=== PATIENT | female | born 1985 | race Caucasian/White ===

== ENCOUNTER 2017-02-28 13:24 | Emergency (ER) | payer OTHER ==
[~2017-02-28] VITALS: Ht 167.6 cm; Wt 100.0 kg
[~2017-02-28 13:24] MED LIST: ALBU8.5H3 INH; CETI10CA PO; GUAI473L22 PO; IBUP400T22 PO; POLY10DR19 BOTH EYES
[2017-02-28 13:28] VITALS: Ht 167.6 cm; Wt 100.0 kg
[2017-02-28] MEDS ORDERED: KETOROLAC 30 MG INJ IV STA (16:06)
[2017-02-28] MEDS ORDERED: ONDANSETRON 4 MG INJ IV STA ×2 (16:06→17:35)
[2017-02-28 16:29] LABS: ADD UMIC YES; UR ASCORBIC ACID NEGATIVE (NEGATIVE); UR BACTERIA FEW /HPF (NONE SEEN); UR BILIRUBIN (Dip) NEGATIVE (NEGATIVE); UR BLOOD (Dip) 3+ mg/dL (NEGATIVE); UR CLARITY CLEAR (CLEAR); UR COLOR YELLOW (YELLOW); UR GLUCOSE (Dip) NEGATIVE (NEGATIVE); UR KETONES (Dip) NEGATIVE (NEGATIVE); UR LEUKOCYTE ESTERASE (Dip) NEGATIVE Leu/ul (NEGATIVE); UR MUCUS FEW /HPF (NONE SEEN); UR NITRITE (Dip) NEGATIVE (NEGATIVE); UR RBC 1 /HPF (0-5); UR SPECIFIC GRAVITY (Dip) 1.012 (1.003-1.030); UR SQUAMOUS EPITHELIAL CELL FEW /HPF (FEW); UR TOTAL PROTEIN (Dip) NEGATIVE (NEGATIVE); UR UROBILINOGEN (Dip) NEGATIVE (NEGATIVE)
--- NOTE | 2017-02-28 16:42 | ERD ---
ER Documentation Chief Complaint Chief Complaint VOMITING, LEFT SIDE PAIN, ONSET 1 DAY HPI This is a 31 year old female who presents emergency department today complaining of left-sided back pain left-sided abdominal pain and vomiting that started last night. States she took ibuprofen last night and Gas-X. Denies any fevers or chills, dysuria or hematuria. States she just finished her menstrual cycle. ROS All systems reviewed and are negative except as per history of present illness. Medications Home Meds Active Scripts Ondansetron Hcl* (Zofran*) 4 Mg Tablet, 4 MG PO Q6H for NAUSEA AND/OR VOMITING, #30 TAB Prov:JOHNNY FRIED PA-C 02/28/17 Naproxen* (Naprosyn*) 500 Mg Tablet, 500 MG PO BID Y for PAIN AND/OR INFLAMMATION, #30 TAB Prov:JOHNNY FRIED PA-C 02/28/17 Hydrocodone/Acetaminophen ([place] 5-325 Tablet) 1 Each Tablet, 1 TAB PO Q6H Y for PAIN, #20 TAB Prov:JOHNNY FRIED PA-C 02/28/17 Albuterol Sulfate* (Proair HFA*) 8.5 Gm Hfa.aer.ad, 2 PUFF INH Q4H Y for WHEEZING AND SOB, #1 INHALER Prov:MOHINI MARTINEZ NP 12/28/15 Ibuprofen* (Motrin*) 400 Mg Tab, 400 MG PO Q6H Y for PAIN AND OR ELEVATED TEMP, #30 TAB Prov:MOHINI MARTINEZ NP 12/28/15 Cetirizine Hcl* (Zyrtec*) 10 Mg Capsule, 10 MG PO DAILY, #30 TAB.CHEW Prov:MOHINI MARTINEZ NP 12/28/15 Guaifenesin-Codeine Phosphate* (Guaifenesin* AC Cough Syrup) 473 Ml Liquid, 5 ML PO Q4H Y for COUGH, #60 ML Prov:MOHINI MARTINEZ NP 12/28/15 Polymyxin B Sulfate-TMP* (Polymyxin B-TMP Eye Drops*) 10 Ml Drops, 1 DROP BOTH EYES QID for 7 Days, EA Prov:SHIRLEY HERRERA PA-C 07/21/15 Allergies Allergies: Coded Allergies: No Known Drug Allergies (Verified Allergy, Mild, 02/16/14) PMhx/Soc History of Surgery: Yes () Anesthesia Reaction: No Hx Neurological Disorder: No Hx Respiratory Disorders: No Hx Cardiac Disorders: No Hx Psychiatric Problems: No Hx Miscellaneous Medical Probl: No Hx Alcohol Use: No Hx Substance Use: No Hx Tobacco Use: No Smoking Status: Never smoker Physical Exam Vitals Vital Signs Date Time Temp Pulse Resp B/P Pulse Ox O2 Delivery O2 Flow Rate FiO2 02/28/17 13:28 98.5 72 18 123/76 99 Physical Exam Const: obese, sitting in wheelchair, NAD Head: Atraumatic Eyes: Normal Conjunctiva ENT: Normal External Ears, Nose and Mouth. Neck: Full range of motion..~ No meningismus. Resp: Clear to auscultation bilaterally Cardio: Regular rate and rhythm, no murmurs Abd: Soft, his left-sided abdominal pain. non distended. Normal bowel sounds right sided abdominal pain. No tenderness to McBurney's. Skin: No petechiae or rashes Back: No midline tenderness, sided paraspinal tenderness. No CVA tenderness. Ext: No cyanosis, or edema Neur: Awake and alert Psych: Normal Mood and Affect Result Diagram: 02/28/17 1620 02/28/17 1620 Results 24 hrs Laboratory Tests Test 02/28/17 16:17 02/28/17 16:20 Urine Color YELLOW Urine Clarity CLEAR Urine pH 6.0 Urine Specific Ranger 1.012 Urine Ketones NEGATIVEmg/dL Urine Nitrite NEGATIVEmg/dL Urine Bilirubin NEGATIVEmg/dL Urine Urobilinogen NEGATIVEmg/dL Urine Leukocyte Esterase NEGATIVELeu/ul Urine Microscopic RBC 1/HPF Urine Microscopic WBC 1/HPF Urine Squamous Epithelial Cells FEW/HPF Urine Bacteria FEW/HPF Urine Mucus FEW/HPF Urine Hemoglobin 3+mg/dL Urine Glucose NEGATIVEmg/dL Urine Total Protein NEGATIVEmg/dl White Blood Count 13.210^3/ul Red Blood Count 4.8210^6/ul Hemoglobin 11.2g/dl Hematocrit 36.2% Mean Corpuscular Volume 75.1fl Mean Corpuscular Hemoglobin 23.2pg Mean Corpuscular Hemoglobin Concent 30.9g/dl Red Cell Distribution Width 15.9% Platelet Count 01353^3/UL Mean Platelet Volume 10.3fl Neutrophils % 73.7% Lymphocytes % 20.5% Monocytes % 4.0% Eosinophils % 1.1% Basophils % 0.4% Nucleated Red Blood Cells % 0.0/100WBC Neutrophils # 9.710^3/ul Lymphocytes # 2.710^3/ul Monocytes # 0.510^3/ul Eosinophils # 0.110^3/ul Basophils # 0.110^3/ul Nucleated Red Blood Cells # 0.010^3/ul Sodium Level 143mmol/L Potassium Level 3.7mmol/L Chloride Level 103mmol/L Carbon Dioxide Level 29mmol/L Anion Gap 15 Blood Urea Nitrogen 11mg/dl Creatinine 0.83mg/dl Glucose Level 112mg/dl Calcium Level 9.2mg/dl Total Bilirubin 0.3mg/dl Direct Bilirubin 0.00mg/dl Indirect Bilirubin 0.3mg/dl Aspartate Amino Transf (AST/SGOT) 16IU/L Alanine Aminotransferase (ALT/SGPT) 29IU/L Alkaline Phosphatase 89IU/L Total Protein 7.9g/dl Albumin 4.3g/dl Globulin 3.60g/dl Albumin/Globulin Ratio 1.19 Lipase 34U/L Current Medications Medications (Trade) Dose Ordered Sig/Willie Route PRN Reason Start Time Stop Time Status Last Admin Dose Admin Ondansetron HCl (Zofran Inj) 4 mg ONCE STAT IV 02/28/17 16:06 02/28/17 16:07 DC 02/28/17 16:17 Ketorolac Tromethamine (Toradol) 30 mg ONCE STAT IV 02/28/17 16:06 02/28/17 16:07 DC 02/28/17 16:17 Morphine Sulfate (morphine) 4 mg ONCE STAT IV 02/28/17 17:35 02/28/17 17:36 DC 02/28/17 17:40 Ondansetron HCl (Zofran Inj) 4 mg ONCE STAT IV 02/28/17 17:35 02/28/17 17:36 DC 02/28/17 17:40 DIAGNOSTIC IMAGING REPORT Patient: MELA RUSSELL : 1985 Age: 31 Sex: F MR #: [id number] DOS: 02/28/17 1606 Ordering MD: JOHNNY FRIED PA-C Location: [facility] Room/Bed: PROCEDURE: CT abdomen and pelvis without contrast. CLINICAL INDICATION: Nausea, vomiting and right lower quadrant pain for 2 days TECHNIQUE: CT scan of the abdomen and pelvis without contrast was performed. Sagittal and coronal reformatted images were obtained from the axial source images. One or more of the following dose reduction techniques were used: Automated exposure control, adjustment of the mA and/or kV according to patient size, use of iterative reconstruction technique. CTDI = 28.29 mGy; DLP = 1926.89 mGy-cm COMPARISON: None available. FINDINGS: Visualized lower thorax: The lung bases are clear. There is no evidence for pleural effusion. Liver, gallbladder, pancreas and spleen: The liver is normal and size, contour and attenuation. There is no evidence for a liver mass or ductal dilatation. The gallbladder is unremarkable. No common bile duct abnormality is demonstrated. The pancreas is unremarkable. The spleen is normal in size. Adrenal glands and genitourinary system: The adrenal glands are normal bilaterally. The kidneys are normal and size, contour and attenuation with no evidence for masses, calculi or hydronephrosis. The ureters are unremarkable. No urinary bladder abnormality is demonstrated. The uterus is unremarkable. Within the center of the pelvis, slightly to the right of midline is an ovoid, circumscribed mass estimated at 6.4 x 11 x 8 cm in AP, transverse and cranial caudal dimensions respectively, the mass containing both a cystic component to the left of midline, a fat component to the right of midline and calcifications along the inferior aspect, findings consistent with a teratoma. There is no evidence of adjacent edema or inflammation of the surrounding fat. The right ovary is visualized and therefore this finding is probably arising from the left ovary. A trace amount of free fluid is present within the dependent cul-de- sac Gastrointestinal system: The stomach is normal in caliber with no abnormality of significance. The small bowel is normal in caliber with no ileus, obstruction or wall thickening. The appendix and surrounding fat are within the limits of normal. The colon shows no evidence for wall thickening or acute abnormality. There is no evidence for colitis or diverticulitis. Peritoneum, retroperitoneum, lymph nodes and vessels: The abdominal aorta is normal in caliber. There is no evidence for atherosclerotic calcification. The inferior vena cava is unremarkable. There is no evidence for adenopathy or mass. There is no ascites. Osseous structures and musculoskeletal findings: There is no fracture, lytic or blastic lesion. No muscular abnormality or soft tissue pathology is present. RPTAT:HJJR IMPRESSION: 1. 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 2. Trace amount of free fluid in the posterior cul-de-sac possibly physiologic. 3. No other abnormalities in the abdomen and pelvis identified. Physician Lizzy Date Time Electronically viewed and signed by Physician Lizzy on 02/28/2017 16:46 JR/ CC: JOHNNY FRIED PA-C DIAGNOSTIC IMAGING REPORT Patient: MELA RUSSELL : 1985 Age: 31 Sex: F MR #: [id number] DOS: 02/28/17 0000 Ordering MD: JOHNNY FRIED PA-C Location: [facility] Room/Bed: PROCEDURE: US Pelvis. CLINICAL INDICATION: Further evaluation for possible teratoma. Last menstrual period 02/23/2017. Left abdominal pain TECHNIQUE: Multiple sonographic images of the pelvis were obtained utilizing a transabdominal and endovaginal technique. The images were reviewed on a PACS workstation. COMPARISON: CT abdomen and pelvis without contrast of 02/28/2017 FINDINGS: The uterus measures 11 x 3.1 x 5 cm and is unremarkable. The thickness of the endometrium equals 4.4 mm. No normal right ovary is seen. 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 On ultrasound there is a corresponding right adnexal mass measures 7.7 x 4.9 x 5.9 cm containing increased echogenicity posterior acoustic shadowing with an additional 5.8 x 6.3 x 6.1 cm cystic mass in the left adnexal region. No normal right ovary is seen. Color flow and spectral analysis demonstrates arterial and venous flow in the mass. The left ovary measures 3.4 x 2.9 x 2.6 cm and is unremarkable. Color flow and spectral analysis demonstrates normal arterial flow in the left ovary. No free intrapelvic fluid is seen. 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 On ultrasound there is a corresponding right adnexal mass measures 7.7 x 4.9 x 5.9 cm containing increased echogenicity and posterior acoustic shadowing with an additional 5.8 x 6.3 x 6.1 cm cystic mass in the left adnexal region which on CT is a contiguous with the fat and calcification containing portion. No normal right ovary is seen. Please see above. RPTAT: HJES .Yury Iraheta MD, MD Date Time Electronically viewed and signed by .Yury Iraheta MD, MD on 02/28/2017 19:26 .S/ CC: JOHNNY FRIED PA-C Procedures/[facility] This is a 31-year old female who presents the emergency department today complaining of left-sided flank pain and abdominal pain for the past day. Patient indicated that she had vomited multiple times. Patient was sitting in wheelchair in no acute distress however on physical exam she had diffuse left- sided abdominal pain and therefore did obtain laboratory workup as well as imaging. Laboratory workup elevated white blood cell count of 13.2. Her hemoglobin is very mildly decreased at 11.2. Platelets are mildly elevated. Electrolytes are within normal limits. Liver enzymes are within normal limits. Lipase is within normal limits. UA is negative for infection Urine is negative CT abdomen pelvis noncontrast shows a complex cystic and solid mass within the center of the pelvis containing fat and a calcification is compatible with a teratoma until proven otherwise. The size of the mass is estimated at 6.4118 cm there is a trace amount of free fluid in the posterior cul-de-sac possibly physiologic. There are no other abnormalities in the abdomen or pelvis. patient was given Zofran and Toradol here in the emergency department complaining of pain and was therefore given morphine. I discussed the patient with Dr. 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 On ultrasound there is a corresponding right adnexal mass that measures 7.7 x 4.9 x 5.9 cm increased echogenicity and posterior acoustic shadowing with an additional 5.8 x 6.3 x 6.1 cm cystic mass in the left adnexal region which on CT is contiguous with the fat and calcific location containing portion. There is no normal right ovary seen. Right ovary shows arterial and venous flow in the mass. Left ovary shows normal arterial flow. I did place a call to the laborist jewelry consultant, Dr. Delcid, who has agreed to see and evaluate the patient and she feels that the patient is stable for discharge and outpatient management as recommended follow-up with Dr. Horta or gynecological oncologist. At this time there is no evidence on ultrasound of torsion. At this time is consistent with abdominal pain and teratoma. Patient will be given a prescription for [place], Naprosyn and Zofran for home. Patient was given strict return precautions. Departure Diagnosis: Primary Impression: Abdominal pain Abdominal location: generalized Qualified Code: R10.84 - Generalized abdominal pain Additional Impression: Teratoma Condition: JOHNNY Bell PA-C Feb 28, 2017 16:42
--- NOTE | 2017-02-28 16:47 | RADRPT ---
PROCEDURE: CT abdomen and pelvis without contrast. CLINICAL INDICATION: Nausea, vomiting and right lower quadrant pain for 2 days TECHNIQUE: CT scan of the abdomen and pelvis without contrast was performed. Sagittal and coronal reformatted images were obtained from the axial source images. One or more of the following dose re duction techniques were used: Automated exposure control, adjustment of the mA and/or kV according t o patient size, use of iterative reconstruction technique. CTDI = 28.29 mGy; DLP = 1926.89 mGy-cm COMPARISON: None available. FINDINGS: Visualized lower thorax: The lung bases are clear. There is no evidence for pleural effusion. Liver, gallbladder, pancreas and spleen: The liver is normal and size, contour and attenuation. Th ere is no evidence for a liver mass or ductal dilatation. The gallbladder is unremarkable. No comm on bile duct abnormality is demonstrated. The pancreas is unremarkable. The spleen is normal in si ze. Adrenal glands and genitourinary system: The adrenal glands are normal bilaterally. The kidneys are normal and size, contour and attenuation with no evidence for masses, calculi or hydronephrosis. T he ureters are unremarkable. No urinary bladder abnormality is demonstrated. The uterus is unremar kable. Within the center of the pelvis, slightly to the right of midline is an ovoid, circumscribed mass estimated at 6.4 x 11 x 8 cm in AP, transverse and cranial caudal dimensions respectively, the mass containing both a cystic component to the left of midline, a fat component to the right of midl ine and calcifications along the inferior aspect, findings consistent with a teratoma. There is no e vidence of adjacent edema or inflammation of the surrounding fat. The right ovary is visualized and therefore this finding is probably arising from the left ovary. A trace amount of free fluid is pres ent within the dependent cul-de-sac Gastrointestinal system: The stomach is normal in caliber with no abnormality of significance. The small bowel is normal in caliber with no ileus, obstruction or wall thickening. The appendix and s urrounding fat are within the limits of normal. The colon shows no evidence for wall thickening or acute abnormality. There is no evidence for colitis or diverticulitis. Peritoneum, retroperitoneum, lymph nodes and vessels: The abdominal aorta is normal in caliber. The re is no evidence for atherosclerotic calcification. The inferior vena cava is unremarkable. There is no evidence for adenopathy or mass. There is no ascites. Osseous structures and musculoskeletal findings: There is no fracture, lytic or blastic lesion. No muscular abnormality or soft tissue pathology is present. RPTAT:HJJR IMPRESSION: 1. 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 2. Trace amount of free fluid in the posterior cul-de-sac possibly physiologic. 3. No other abnormalities in the abdomen and pelvis identified. Physician Lizzy Date Time Electronically viewed and signed by Physician Lizzy on 02/28/2017 16:46 JR/
[2017-02-28 17:16] LABS: BASOPHIL # 0.1 10^3/ul (0.0-0.1); BASOPHILS % 0.4 % (0.0-2.0); EOSINOPHILS # 0.1 10^3/ul (0.0-0.5); EOSINOPHILS % 1.1 % (0.0-7.0); HEMATOCRIT 36.2 % (37.0-47.0); HEMOGLOBIN 11.2 g/dl (12.0-16.0); LYMPHOCYTES # 2.7 10^3/ul (0.8-2.9); LYMPHOCYTES % 20.5 % (15.0-51.0); MEAN CORPUSCULAR HEMOGLOBIN 23.2 pg (29.0-33.0); MEAN CORPUSCULAR HGB CONC 30.9 g/dl (32.0-37.0); MEAN CORPUSCULAR VOLUME 75.1 fl (82.0-101.0); MEAN PLATELET VOLUME 10.3 fl (7.4-10.4); MONOCYTE # 0.5 10^3/ul (0.3-0.9); NEUTROPHIL # 9.7 10^3/ul (1.6-7.5); NEUTROPHILS % 73.7 % (39.0-77.0); PLATELET COUNT 433 10^3/UL (140-415); RED BLOOD COUNT 4.82 10^6/ul (4.20-5.40); RED CELL DISTRIBUTION WIDTH 15.9 % (11.5-14.5); WHITE BLOOD COUNT 13.2 10^3/ul (4.8-10.8)
[2017-02-28] MEDS ORDERED: morphine 4 MG/ML VIAL IV STA (17:35)
[2017-02-28 17:37] LABS: ALBUMIN 4.3 g/dl (3.3-4.9); ALBUMIN/GLOBULIN RATIO 1.19; BILIRUBIN,INDIRECT 0.3 mg/dl (0-1.1); BILIRUBIN,TOTAL 0.3 mg/dl (0.2-1.3); CALCIUM 9.2 mg/dl (8.4-10.2); CREATININE 0.83 mg/dl (0.44-1.00); POTASSIUM 3.7 mmol/L (3.5-5.1); TOTAL PROTEIN 7.9 g/dl (6.1-8.1)
--- NOTE | 2017-02-28 19:27 | RADRPT ---
PROCEDURE: US Pelvis. CLINICAL INDICATION: Further evaluation for possible teratoma. Last menstrual period 02/23/2017. L eft abdominal pain TECHNIQUE: Multiple sonographic images of the pelvis were obtained utilizing a transabdominal and endovaginal technique. The images were reviewed on a PACS workstation. COMPARISON: CT abdomen and pelvis without contrast of 02/28/2017 FINDINGS: The uterus measures 11 x 3.1 x 5 cm and is unremarkable. The thickness of the endometrium equals 4.4 mm. No normal right ovary is seen. 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 On ultrasound there is a corresponding right adnexa l mass measures 7.7 x 4.9 x 5.9 cm containing increased echogenicity posterior acoustic shadowing wi th an additional 5.8 x 6.3 x 6.1 cm cystic mass in the left adnexal region. No normal right ovary is seen. Color flow and spectral analysis demonstrates arterial and venous flow in the mass. The left ovary measures 3.4 x 2.9 x 2.6 cm and is unremarkable. Color flow and spectral analysis demonstrate s normal arterial flow in the left ovary. No free intrapelvic fluid is seen. IMPRESSION: On the CT there is a 11 x 6.4 cm fat, fluid and calcification containing mass in the anterior mid to upper pelvis extending into the lower abdomen centered to the right of midline compatible with an o varian dermoid apparently arising from the right ovary with the cystic portion centered to the left of midline. On ultrasound there is a corresponding right adnexal mass measures 7.7 x 4.9 x 5.9 cm co ntaining increased echogenicity and posterior acoustic shadowing with an additional 5.8 x 6.3 x 6.1 cm cystic mass in the left adnexal region which on CT is a contiguous with the fat and calcification containing portion. No normal right ovary is seen. Please see above. RPTAT: HJES .Yury Iraheta MD, MD Date Time Electronically viewed and signed by .Yury Iraheta MD, on 02/28/2017 19:26 .S/
[2017-02-28] MEDS ORDERED: HYDR-906 PO (20:36)
[2017-02-28] MEDS ORDERED: NAPR-260 PO (20:36)
[2017-02-28] MEDS ORDERED: ONDA4TAB8 PO (20:37)
[2017-02-28 21:13] VITALS: BP 122/81; PULSE 75; RESP 18; TEMP 98.2
--- NOTE | 2017-02-28 21:48 | CONS ---
Date/Time of Note Date/Time of Note DATE: 02/28/17 TIME: 21:41 Assessment/Plan Assessment/Plan Chief Complaint/Hosp Course Bilateral adnexal masses consistent with dermoids/teratomas Problems: Additional Assessment/Plan Patient's left abdominal pain and left flank pain substantially subsided after pain medication Patient was advised that given the fact that she has bilateral large dermoid cysts she is at risk for possible ovarian torsion She was further counseled to schedule an appointment with reciprocating drill operator as soon as possible to be scheduled for surgery She was instructed to abstain from intercourse, heavy lifting or exercise and further counseled that she should return if she continues to have persistent pain without any relief or unable to walk We provided Dr. Preston Horta/gynecology oncologist information so that she could make an appointment with him as soon as possible Consultation Date/Type/Reason Admit Date/Time Reason for Consultation This is a 31 year old female 2 para 2 who presents emergency department today complaining of left-sided back pain left-sided abdominal pain and vomiting that started last night Patient reports a history of left ovarian cyst for the last 2 years OB history significant for 2 Constitutional: improved, no complaints Eyes: no complaints ENT: no complaints Respiratory: no complaints Cardiovascular: no complaints Gastrointestinal: no complaints Genitourinary: no complaints Musculoskeletal: no complaints Skin: no complaints Neurologic: no complaints Endocrine: no complaints Lymphatic: no complaints Psychological: nl mood/affect, no complaints Immunologic: no complaints Social History Smoking Status: Never smoker Exam/Review of Systems Vital Signs Vitals Vital Signs Date Time Temp Pulse Resp B/P Pulse Ox O2 Delivery O2 Flow Rate FiO2 02/28/17 21:13 98.2 75 18 122/81 97 Room Air Exam Constitutional: alert, oriented, well developed Results Result Diagram: 02/28/17 1620 02/28/17 1620 Results 24 hrs Laboratory Tests Test 02/28/17 16:17 02/28/17 16:20 Urine Color YELLOW Urine Clarity CLEAR Urine pH 6.0 Urine Specific [place] 1.012 Urine Ketones NEGATIVE Urine Nitrite NEGATIVE Urine Bilirubin NEGATIVE Urine Urobilinogen NEGATIVE Urine Leukocyte Esterase NEGATIVE Urine Microscopic RBC 1 Urine Microscopic WBC 1 Urine Squamous Epithelial Cells FEW Urine Bacteria FEW A Urine Mucus FEW A Urine Hemoglobin 3+ H Urine Glucose NEGATIVE Urine Total Protein NEGATIVE White Blood Count 13.2 H Red Blood Count 4.82 # Hemoglobin 11.2 #L Hematocrit 36.2 #L Mean Corpuscular Volume 75.1 L Mean Corpuscular Hemoglobin 23.2 L Mean Corpuscular Hemoglobin Concent 30.9 L Red Cell Distribution Width 15.9 H Platelet Count 433 H Mean Platelet Volume 10.3 Neutrophils % 73.7 Lymphocytes % 20.5 Monocytes % 4.0 Eosinophils % 1.1 Basophils % 0.4 Nucleated Red Blood Cells % 0.0 Neutrophils # 9.7 H Lymphocytes # 2.7 Monocytes # 0.5 Eosinophils # 0.1 Basophils # 0.1 Nucleated Red Blood Cells # 0.0 Sodium Level 143 Potassium Level 3.7 Chloride Level 103 Carbon Dioxide Level 29 Anion Gap 15 Blood Urea Nitrogen 11 Creatinine 0.83 Glucose Level 112 Calcium Level 9.2 Total Bilirubin 0.3 Direct Bilirubin 0.00 Indirect Bilirubin 0.3 Aspartate Amino Transf (AST/SGOT) 16 Alanine Aminotransferase (ALT/SGPT) 29 Alkaline Phosphatase 89 Total Protein 7.9 Albumin 4.3 Globulin 3.60 H Albumin/Globulin Ratio 1.19 Lipase 34 Imaging Free Text/Dictation PROCEDURE: US Pelvis. CLINICAL INDICATION: Further evaluation for possible teratoma. Last menstrual period 02/23/2017. Left abdominal pain TECHNIQUE: Multiple sonographic images of the pelvis were obtained utilizing a transabdominal and endovaginal technique. The images were reviewed on a PACS workstation. COMPARISON: CT abdomen and pelvis without contrast of 02/28/2017 FINDINGS: The uterus measures 11 x 3.1 x 5 cm and is unremarkable. The thickness of the endometrium equals 4.4 mm. No normal right ovary is seen. 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 On ultrasound there is a corresponding right adnexal mass measures 7.7 x 4.9 x 5.9 cm containing increased echogenicity posterior acoustic shadowing with an additional 5.8 x 6.3 x 6.1 cm cystic mass in the left adnexal region. No normal right ovary is seen. Color flow and spectral analysis demonstrates arterial and venous flow in the mass. The left ovary measures 3.4 x 2.9 x 2.6 cm and is unremarkable. Color flow and spectral analysis demonstrates normal arterial flow in the left ovary. No free intrapelvic fluid is seen. 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 On ultrasound there is a corresponding right adnexal mass measures 7.7 x 4.9 x 5.9 cm containing increased echogenicity and posterior acoustic shadowing with an additional 5.8 x 6.3 x 6.1 cm cystic mass in the left adnexal region which on CT is a contiguous with the fat and calcification containing portion. No normal right ovary is seen. Please see above. RPTAT: HJES .Yury Iraheta MD, MD Date Time Electronically viewed and signed by .Yury Iraheta MD, MD on 02/28/2017 19:26 .S/ CC: JOHNNY FRIED PA-C, BAHAREH MD Feb 28, 2017 21:48
== END 2017-02-28 21:19 | disposition home or self-care (01) ==
LOC: FTE 13:24
DX: D27.0 Benign neoplasm of right ovary (principal)
CPT/HCPCS: 36415; 74176; 76830; 76856; 80053; 81001; 83690; 85025; 96374; 96375; 96376; J1885; J2270; J2405; Z7502

== ENCOUNTER 2017-07-27 20:04 | Emergency (ER) | END 2017-07-27 20:51 | disposition home or self-care (01) ==